=== PATIENT | female | born 1990 | race Caucasian/White ===

== ENCOUNTER 2016-06-28 06:15 | Inpatient (IN) | payer MEDICAID ==
[~2016-06-28] VITALS: Ht 165.1 cm; Wt 87.5 kg
[2016-06-28] MEDS ORDERED: FAMOTIDINE 20 MG TAB PO PRN (06:25)
[2016-06-28] MEDS ORDERED: ACETAMINOPHEN 325 MG TAB PO PRN (06:25)
[2016-06-28] MEDS ORDERED: OXYTOCIN 15 UNITS/250 ML NS 250 ML IV SCH ×3 (06:25→23:00)
[2016-06-28] MEDS ORDERED: ALU/MAG/SIM 30 ML UDC PO PRN (06:25)
[2016-06-28] MEDS ORDERED: TERBUTALINE 1 MG/ML VIAL SUBQ PRN (06:25)
[2016-06-28] MEDS ORDERED: FAMOTIDINE 20 MG INJ IV PRN (06:25)
[2016-06-28] MEDS ORDERED: CEFAZOLIN (LD/OB) 100 ML IV PRN (06:25)
[2016-06-28] MEDS ORDERED: LIDOCAINE 1% BUFFERED 1 ML SYR INTRADERM PRN (06:25)
[2016-06-28] MEDS ORDERED: LIDOCAINE 1% 30 ML PF INFILTRATE ONE (06:25)
[2016-06-28] MEDS ORDERED: MORPHINE 5 MG/1 ML VIAL IV PRN (06:25)
[2016-06-28] MEDS ORDERED: PROMETHAZINE 25 MG/ML VIAL IV PRN ×2 (06:25→21:50)
[2016-06-28] MEDS ORDERED: METOCLOPRAMIDE 10 MG/2 ML VIAL IV PUSH PRN (06:25)
[2016-06-28] MEDS ORDERED: ONDANSETRON 4 MG VIAL IV PRN ×4 (06:25→23:00)
[2016-06-28 06:40] VITALS: Ht 165.1 cm; Wt 87.5 kg
[2016-06-28] MEDS ORDERED: BUPIVACAINE 0.25% PF 10ML EPIDURAL ONE (06:40)
[2016-06-28] MEDS: LACT RINGERS 1,000 ML IV SCH ×2 (06:46→21:00)
[2016-06-28] MEDS ORDERED: LIDOCAINE 2% 5 ML IV ONE (10:40)
[2016-06-28] MEDS ORDERED: ROPIV/FENT 0.2%-2MCG/ML 100 ML EPIDURAL ONE (15:55)
[2016-06-28] MEDS ORDERED: FENTANYL 100 MCG/2 ML AMP ONE (15:56)
[2016-06-28] MEDS ORDERED: SODIUM CHLORIDE 0.9% 500 ML IV PRN (16:55)
[2016-06-28] MEDS ORDERED: LACT RINGERS 500 ML IV ONE (16:55)
[2016-06-28] MEDS ORDERED: ROPIV/FENT 0.2%-2MCG/ML 100 ML EPIDURAL SCH (16:55)
[2016-06-28] MEDS ORDERED: FENTANYL 100 MCG/2 ML AMP EPIDURAL ONE (16:55)
[2016-06-28] MEDS ORDERED: LACT RINGERS 500 ML IV PRN (16:55)
[2016-06-28] MEDS ORDERED: **ONLY ANESTEHSIA MAY ORDER OPIATES WHILE ON EPIDURAL XX SCH (20:00)
[2016-06-28] MEDS ORDERED: MORPHINE 4 MG/ML SYR IV PRN ×2 (21:50)
[2016-06-28] MEDS ORDERED: OXYCODONE 5 MG TAB PO PRN (21:50)
[2016-06-28] MEDS ORDERED: NALOXONE 0.4 MG/ML AMP IV PRN (21:50)
[2016-06-28] MEDS ORDERED: DIPHENHYDRAMINE 50 MG/ML VIAL IV PRN (21:50)
[2016-06-28] MEDS ORDERED: BUTORPHANOL 1 MG/ML VIAL IV PRN (21:50)
[2016-06-28] MEDS ORDERED: SALINE FLUSH 10 ML FLUSH PRN (21:50)
[2016-06-28] MEDS ORDERED: MEPERIDINE 25 MG/ML IV PRN (21:50)
[2016-06-28] MEDS ORDERED: DILAUDID 1 MG/ML AMP IV PRN (21:50)
[2016-06-28] MEDS ORDERED: MORPHINE 2 MG/ML SYR IV PRN ×2 (21:50)
[2016-06-28] MEDS ORDERED: METHYLERGONOVINE MAL 0.2 MG/ML AMP ONE (22:02)
[2016-06-28] MEDS ORDERED: MISOPROSTOL 100 MCG TAB ONE (22:02)
[2016-06-28 22:45] VITALS: BP_SYST 159; RESP 16; TEMP 98.4
[2016-06-28 22:50] VITALS: BP_SYST 122; RESP 16
[2016-06-28 22:55] VITALS: BP_SYST 140; RESP 16
[2016-06-28] MEDS ORDERED: LACT RINGERS 1,000 ML IV SCH (23:00)
[2016-06-28] MEDS ORDERED: TDaP 0.5 ML VIAL IM.VACC ONE (23:00)
[2016-06-28] MEDS ORDERED: MEASLES,MUMPS,RUBELLA VAC SUBQ.VACC ONE (23:00)
[2016-06-28 23:15] VITALS: BP_SYST 139; RESP 16
[2016-06-28 23:30] VITALS: BP_SYST 142; RESP 16
[2016-06-28 23:45] VITALS: BP_SYST 148; RESP 16
[2016-06-29] VITALS (17 sets, daily range): BP systolic 121–144; RESP 16–24; TEMP 98.1–98.6
[2016-06-29] MEDS: KETOROLAC 30 MG/ML VIAL IV SCH ×4 (00:04→17:39)
[2016-06-29] MEDS ORDERED: LACTATED RINGERS IV SCH (00:10)
[2016-06-29] MEDS ORDERED: OXYTOCIN IV SCH (00:10)
[2016-06-29] MEDS ORDERED: MISOPROSTOL 100 MCG TAB PO ONE (00:10)
[2016-06-29] MEDS: METHYLERGONOVINE 0.2 MG TAB PO SCH ×4 (00:25→17:39)
[2016-06-29] MEDS ORDERED: METHYLERGONOVINE MAL 0.2 MG/ML AMP ONE ×2 (03:16→04:45)
[2016-06-29] MEDS ORDERED: CARBOPROST 250 MCG/ML AMP IM ONE (03:20)
[2016-06-29] MEDS ORDERED: METHYLERGONOVINE MAL 0.2 MG/ML AMP IM ONE (04:50)
[2016-06-29] MEDS: SODIUM CHLORIDE 0.9% FLUSH BAG 500 ML IV SCH (05:03)
[2016-06-29] MEDS: SALINE FLUSH 10 ML FLUSH SCH ×2 (08:00→20:00)
[2016-06-29] MEDS: MAG HYDROX 30 ML UDC PO SCH ×4 (08:56→23:30)
[2016-06-29] MEDS ORDERED: Ibuprofen 600 MG TAB PO SCH (12:00)
[2016-06-29] MEDS: Ibuprofen 600 MG TAB PO SCH (23:30)
[2016-06-30 05:33] VITALS: BP_SYST 118; RESP 16; TEMP 98.1
[2016-06-30] MEDS: Ibuprofen 600 MG TAB PO SCH ×3 (05:33→17:52)
[2016-06-30] MEDS: SODIUM CHLORIDE 0.9% FLUSH BAG 500 ML IV SCH (05:33)
[2016-06-30] MEDS: MAG HYDROX 30 ML UDC PO SCH ×2 (07:52→16:00)
[2016-06-30 09:41] VITALS: BP_SYST 104; RESP 18; TEMP 97.7
[2016-06-30 17:53] VITALS: BP_SYST 120; RESP 20; TEMP 97.7
[2016-07-01] MEDS: Ibuprofen 600 MG TAB PO SCH ×2 (00:54→08:19)
[2016-07-01 05:20] VITALS: BP_SYST 117; RESP 16; TEMP 97.7
[2016-07-01 09:10] VITALS: BP_SYST 110; RESP 18; TEMP 97.6
[2016-07-01 13:03] VITALS: BP_SYST 110; RESP 18; TEMP 97.6
== END 2016-07-01 14:42 | disposition home or self-care (01) | DRG 766 ==
LOC: LD 06:15 → OB 06-29 02:20
PROVIDERS: ADMIT Obstetrics & Gynecology Reproductive Endocrinology; ATTEND Obstetrics & Gynecology Reproductive Endocrinology
PROC: 10D00Z1 Extraction of Products of Conception, Low, Open Approach (ICD-10-PCS; principal; 2016-06-28)
PROC: 3E033VJ Introduction of Other Hormone into Peripheral Vein, Percutaneous Approach (ICD-10-PCS; 2016-06-28)
CPT/HCPCS: 82803; 85025; 86850; 86900; 86901

== ENCOUNTER 2016-07-24 14:10 | Emergency (ER) | payer MEDICAID ==
[2016-07-24] MEDS ORDERED: MORPHINE 4 MG/ML SYR ONE (14:38)
[2016-07-24] MEDS ORDERED: ONDANSETRON 4 MG VIAL ONE (14:38)
[2016-07-24] MEDS ORDERED: SODIUM CHLORIDE 0.9% 1,000 ML ONE (14:38)
== END 2016-07-24 16:57 | disposition home or self-care (01) ==
LOC: ER 14:10
DX: S39.012A Strain of muscle, fascia and tendon of lower back, initial encounter (principal); M54.5 Low back pain
CPT/HCPCS: 36415; 72100; 76705; 80053; 81003; 84439; 84443; 85025; 93005; 96361; 96374; 96375

== ENCOUNTER 2016-07-28 00:59 | Emergency (ER) | payer MEDICAID ==
[2016-07-28] MEDS ORDERED: KETOROLAC 30 MG/ML VIAL ONE (03:22)
[2016-07-28] MEDS ORDERED: ONDANSETRON 4 MG VIAL ONE (03:22)
== END 2016-07-28 04:34 | disposition home or self-care (01) ==
LOC: ER 00:59
DX: K80.20 Calculus of gallbladder without cholecystitis without obstruction (principal); K80.70 Calculus of gallbladder and bile duct without cholecystitis without obstruction; N30.01 Acute cystitis with hematuria
CPT/HCPCS: 36415; 80053; 81001; 83690; 84703; 85025; 87077; 87088; 87186; 96374; 96375

== ENCOUNTER 2016-07-29 11:05 | Observation (INO) | payer MEDICAID ==
[2016-07-27 11:01] VITALS: Ht 162.6 cm; Wt 74.8 kg
[2016-07-27 11:13] VITALS: BP_SYST 126; RESP 16; TEMP 98.2
[~2016-07-29] VITALS: Ht 162.6 cm; Wt 74.8 kg
[2016-07-29] VITALS (15 sets, daily range): BP systolic 128–168; RESP 9–18; TEMP 97.3–98.6
[2016-07-29] MEDS ORDERED: KETAMINE INJ 50 MG/ML VIAL IV ONE (11:08)
[2016-07-29] MEDS ORDERED: SCOPOLAMINE PATCH TRANSDERM ONE (11:25)
[2016-07-29] MEDS ORDERED: LIDOCAINE 1% BUFFERED 1 ML SYR INTRADERM PRN (11:25)
[2016-07-29] MEDS ORDERED: GLYCOPYRROLATE 0.2 MG/ML VIAL IV ONE (11:25)
[2016-07-29] MEDS ORDERED: ONDANSETRON 4 MG VIAL IV ONE (11:25)
[2016-07-29] MEDS ORDERED: MIDAZOLAM 2 MG/2 ML INJ IV ONE (11:25)
[2016-07-29] MEDS ORDERED: INDOCYANINE GREEN 25 MG VIAL IV ONE (11:25)
[2016-07-29] MEDS ORDERED: CEFAZOLIN 2,000 MG in SODIUM CHLORIDE 0.9% 100 ML IV ONE (11:30)
[2016-07-29] MEDS: LACT RINGERS 1,000 ML IV SCH ×2 (11:51→14:15)
[2016-07-29] MEDS ORDERED: ONDANSETRON 4 MG VIAL IV PRN (12:05)
[2016-07-29] MEDS ORDERED: OXYCODONE 5 MG TAB PO PRN (12:05)
[2016-07-29] MEDS ORDERED: MORPHINE 2 MG/ML SYR IV PRN ×2 (12:05→13:35)
[2016-07-29] MEDS ORDERED: DILAUDID 1 MG/ML AMP IV PRN (12:05)
[2016-07-29] MEDS ORDERED: MEPERIDINE 25 MG/ML IV PRN (12:05)
[2016-07-29] MEDS ORDERED: ONDANSETRON 4 MG VIAL IV PUSH PRN (13:35)
[2016-07-29] MEDS ORDERED: MORPHINE 4 MG/ML SYR IV PRN (13:35)
[2016-07-29] MEDS ORDERED: SALINE FLUSH 10 ML FLUSH PRN (13:35)
[2016-07-29] MEDS: MORPHINE 4 MG/ML SYR IV PRN ×2 (14:14→14:57)
[2016-07-29] MEDS ORDERED: NEB-ALBUTEROL 2.5 MG/3 ML INH PRN (18:40)
[2016-07-29] MEDS: TRIMETH/SULFAMETH 160/800 TAB PO SCH (20:33)
[2016-07-29] MEDS: SALINE FLUSH 10 ML FLUSH SCH (20:34)
[2016-07-29] MEDS ORDERED: VALACYCLOVIR 500 MG TAB PO SCH (21:00)
[2016-07-29] MEDS: OXYCODONE/APAP 5/325 TAB PO PRN (22:20)
[2016-07-30 02:55] VITALS: BP_SYST 145; RESP 18; TEMP 97.7
[2016-07-30] MEDS ORDERED: SODIUM CHLORIDE 0.9% FLUSH BAG 500 ML IV SCH (06:00)
[2016-07-30] MEDS: OXYCODONE/APAP 5/325 TAB PO PRN (06:12)
[2016-07-30 07:22] VITALS: BP_SYST 115; RESP 16; TEMP 97.5
[2016-07-30] MEDS ORDERED: MISSING DOSE XX ONE (08:35)
[2016-07-30] MEDS: TRIMETH/SULFAMETH 160/800 TAB PO SCH (08:39)
[2016-07-30] MEDS: SALINE FLUSH 10 ML FLUSH SCH (08:39)
[2016-07-30] MEDS ORDERED: PRENATAL VITAMIN TAB PO SCH (09:00)
[2016-07-30] MEDS ORDERED: ONDANSETRON 4 MG VIAL IV PUSH ONE (10:40)
[2016-07-30] MEDS ORDERED: DILAUDID 1 MG/ML AMP IV ONE (10:40)
[2016-07-30] MEDS ORDERED: NEOSTIGMINE 10 MG/10 ML VIAL IV ONE (10:40)
[2016-07-30] MEDS ORDERED: LIDOCAINE 1% 20ML NERVEBLOCK ONE (10:40)
[2016-07-30] MEDS ORDERED: DEXAMETHASONE 4 MG/ML VIAL IV ONE (10:40)
[2016-07-30] MEDS ORDERED: EPINEPHrine 1 MG/ML AMP SUBQ ONE (10:40)
[2016-07-30] MEDS ORDERED: GLYCOPYRROLATE 0.2 MG/ML VIAL IV ONE (10:40)
[2016-07-30] MEDS ORDERED: BUPIVACA/EPI 0.25% PF 30ML NERVEBLOCK ONE (10:40)
[2016-07-30] MEDS ORDERED: ROCURONIUM 50 MG VIAL IV ONE (10:40)
[2016-07-30] MEDS ORDERED: ACETAMINOPHEN 1,000 MG/100 ML IV ONE (10:40)
[2016-07-30] MEDS ORDERED: PROPOFOL 20 ML VIAL IV ONE (10:40)
[2016-07-30] MEDS ORDERED: REMOVE SCOPALAMINE PATCH XX ONE (11:29)
[2016-07-30 11:32] VITALS: BP_SYST 136; RESP 18; TEMP 97.4
[2016-07-30 11:34] VITALS: BP_SYST 136; RESP 18; TEMP 97.4
== END 2016-07-30 10:41 | disposition home or self-care (01) ==
LOC: ENRESERVTM → ENRESERVDT → OSEC 11:05 → SDS 13:32 → 5THE 15:57
PROVIDERS: ADMIT Surgery; ATTEND Surgery
DX: K80.80 Other cholelithiasis without obstruction (principal); J45.909 Unspecified asthma, uncomplicated; Z87.891 Personal history of nicotine dependence; Z79.899 Other long term (current) drug therapy
CPT/HCPCS: 80048; 80076; 81025; 85025; 88304